=== PATIENT | male | born 1990 | race Caucasian/White ===

== ENCOUNTER → 2023-01-07 | Outpatient (CLI) | payer BC ==
[~2023-01-07] MED LIST: ACYC400T21 PO; AGM875T; FLUT16SP22; HYDR1TAB PO; PRD20T
--- NOTE | 2023-01-07 16:36 | Diagnostic Imaging Report ---
EXAMINATION: Left elbow radiographs, 3 views. COMPARISON: None. HISTORY: 32-year-old male, left elbow pain. Injury. FINDINGS: There is no elbow joint effusion. The elbow is not dislocated. There is no acute fracture. The joint spaces are well preserved. There is no radiopaque foreign body. IMPRESSION: Unremarkable radiographs of the left elbow. Dictated by: Dictated on workstation # [id number]
== END ==
LOC: RAD 15:47
PROVIDERS: ATTEND Family Medicine
DX: M25.522 Pain in left elbow (principal)
CPT/HCPCS: 73080